=== PATIENT | female | born 1950 | race Hispanic/Latino ===

== ENCOUNTER 2017-12-25 07:40 | Day surgery (SDC) | payer MEDICARE, MEDICAID ==
[2017-12-25] MEDS ORDERED: Lactated Ringer's 500 ML IV ONE (07:57)
[2017-12-25 08:03] VITALS: BMI 31.2
[2017-12-25] MEDS ORDERED: Midazolam 2 MG/2 ML VIAL ONE (08:42)
[2017-12-25] MEDS ORDERED: Propofol 10 mg/ml Inj (20 ML) ONE (08:42)
[2017-12-25 09:12] VITALS: O2SAT 100
[2017-12-25 09:16] VITALS: BP 142/88; PULSE 57; RESP 17; TEMP 97.8
== END 2017-12-25 14:24 | disposition home or self-care (01) ==
LOC: H.ENDO 07:40 → EDSTATUS 16:00
PROVIDERS: ATTEND Internal Medicine Gastroenterology
DX: Z13.810 Encounter for screening for upper gastrointestinal disorder (principal); K31.89 Other diseases of stomach and duodenum
CPT/HCPCS: 43239; 88305; J2001; J2250; J2704; J7120